=== PATIENT | male | born 1975 | race African-American/Black ===

== ENCOUNTER 2017-12-08 01:57 | Observation (INO) | payer OTHER ==
[~2017-12-08] VITALS: Ht 152.4 cm; Wt 100.0 kg
[2017-12-08] VITALS (7 sets, daily range): BP systolic 137–166; BP diastolic 67–81; PULSE 83–108; RESP 16–20; TEMP 98.3; O2SAT 95–100
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
[2017-12-08] MEDS ORDERED: ONDANSETRON HCL 4 MG/2 ML VIAL IV PUSH ONE (02:15)
[2017-12-08] MEDS ORDERED: MORPHINE SULFATE 8 MG/ML INJ IV PUSH ONE (02:15)
[2017-12-08] MEDS ORDERED: SODIUM CHLORIDE 0.9% FLUSH 10 ML FLUSH IVF PRN (02:15)
[2017-12-08 02:57] LABS: AUTOMATED NEUTROPHIL # 12.1 TH/MM3 (1.8-7.7); BASOPHIL # 0.1 TH/MM3 (0-0.2); BASOPHIL % 0.5 % (0.0-2.0); EOSINOPHIL # 0.1 TH/MM3 (0-0.4); EOSINOPHIL % 0.8 % (0.0-4.0); HEMATOCRIT 40.7 % (39.0-51.0); HEMOGLOBIN 13.4 GM/DL (13.0-17.0); LYMPH % 21.1 % (9.0-44.0); LYMPHOCYTE # 3.5 TH/MM3 (1.0-4.8); MEAN CORPUSCULAR HEMOGLOBIN 27.4 PG (27.0-34.0); MEAN PLATELET VOLUME 7.8 FL (7.0-11.0); MONO % 5.3 % (0.0-8.0); MONOCYTE # 0.9 TH/MM3 (0-0.9); NEUT % 72.3 % (16.0-70.0); PLATELET COUNT 246 TH/MM3 (150-450); RED CELL DISTRIBUTION WIDTH 13.8 % (11.6-17.2); WHITE BLOOD COUNT 16.7 TH/MM3 (4.0-11.0)
[2017-12-08 03:12] LABS: PROTHROMBIN TIME - PATIENT 10.2 SEC (9.8-11.6)
[2017-12-08 03:31] LABS: BICARBONATE 23.7 MEQ/L (21.0-32.0); BLOOD UREA NITROGEN 15 MG/DL (7-18); CALCIUM 8.6 MG/DL (8.5-10.1); CHLORIDE 107 MEQ/L (98-107); GLOMERULAR FILTRATION RATE 80 ML/MIN (>89); GLUCOSE,RANDOM 254 MG/DL (74-106); SODIUM (NA) 140 MEQ/L (136-145)
[2017-12-08] MEDS ORDERED: IOHEXOL 350 MG/ML 10 ML VIAL (for RAD DIAG) IVCONTRAST ONE (04:10)
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
[2017-12-08] MEDS ORDERED: DIPHTH/TETANUS/ACEL PERTUSSIS (BOOSTER) 0.5 ML VIAL/PFS IM ONE (05:45)
[2017-12-08] MEDS ORDERED: CHLORHEXIDINE GLUCONATE 2 % 1 PACK (2 CLOTHS) TOP PRN (05:45)
[2017-12-08] MEDS ORDERED: ACETAMINOPHEN/HYDROcodone 325 MG/5 MG TAB PO PRN ×2 (05:45)
[2017-12-08] MEDS ORDERED: MISCELLANEOUS NURSING INFORMATION XX SCH (05:45)
[2017-12-08] MEDS ORDERED: ACETAMINOPHEN/HYDROcodone 325 MG/5 MG TAB PO ONE (05:45)
[2017-12-08] MEDS ORDERED: MORPHINE SULFATE 8 MG/ML INJ IV PUSH PRN (05:45)
[2017-12-08] MEDS: KETOROLAC TROMETHAMINE 30 MG/ML (IVP) VIAL IVP SCH ×3 (06:04→17:02)
--- NOTE | 2017-12-08 06:13 | HHI.HP ---
History of Present Illness Primary Care Physician No Primary Care Physician Admission Diagnosis Possible Cardiac contusion, Rib fxs, PRISON Diagnoses: History of Present Illness 42 y.o male obese,DM,PRISON,C/o left back pain,thoracic pain anterior-neuro intact, GCS 15,moving all 4 extremities- Review of Systems Constitutional: DENIES: Diaphoretic episodes, Fatigue, Fever, Weight gain, Weight loss, Chills, Dizziness, Change in appetite, Night Sweats Endocrine: DENIES: Heat/cold intolerance, Polydipsia, Polyuria, Polyphagia Eyes: DENIES: Blurred vision, Diplopia, Eye inflammation, Eye pain, Vision loss , Photosensitivity, Double Vision Ears, nose, mouth, throat: DENIES: Tinnitus, Hearing loss, Vertigo, Nasal discharge, Oral lesions, Throat pain, Hoarseness, Ear Pain, Running Nose, Epistaxis, Sinus Pain, Toothache, Odynophagia Respiratory: DENIES: Apneas, Cough, Snoring, Wheezing, Hemoptysis, Sputum production, Shortness of breath Gastrointestinal: DENIES: Abdominal pain, Black stools, Bloody stools, Constipation, Diarrhea, Nausea, Vomiting, Difficulty Swallowing, Anorexia Genitourinary: DENIES: Sexual dysfunction, Urinary frequency, Urinary incontinence, Urgency, Hematuria, Dysuria, Nocturia, Penile Discharge, Testicular Pain, Testicular Swelling Musculoskeletal: DENIES: Joint pain, Muscle aches, Stiffness, Joint Swelling, Back pain, Neck pain Integumentary: DENIES: Abnormal pigmentation, Nail changes, Pruritus, Rash Hematologic/lymphatic: DENIES: Bruising, Lymphadenopathy Immunologic/allergic: DENIES: Eczema, Urticaria Neurologic: DENIES: Abnormal gait, Headache, Localized weakness, Paresthesias, Seizures, Speech Problems, Tremor, Poor Balance Past Family Social History Allergies: Coded Allergies: No Known Allergies (Unverified , 12/08/17) Past Medical History DM2 Past Surgical History none Active Ordered Medications none Family History none Social History no etoh Physical Exam Vital Signs Vital Signs Date Time Temp Pulse Resp B/P (MAP) Pulse Ox O2 Delivery O2 Flow Rate FiO2 12/08/17 04:38 108 16 137/73 (94) 97 Room Air 12/08/17 02:12 98 Room Air 12/08/17 02:11 97 16 166/81 (109) 97 Room Air 12/08/17 02:10 18 Physical Exam GENERAL: This is a well-nourished, well-developed patient, in no apparent distress. SKIN: No rashes, ecchymoses or lesions. Cool and dry. HEAD: No temporal or scalp tenderness. EYES: Pupils equal round and reactive. Extraocular motions intact. ENT: Nose without bleeding, purulent drainage or septal hematoma. Airway patent. NECK: Trachea midline.. CARDIOVASCULAR: Regular rate and rhythm without murmurs, gallops, or rubs. RESPIRATORY: Clear to auscultation. Breath sounds equal bilaterally. No wheezes , rales, or rhonchi. tender CW,tender upper back GASTROINTESTINAL: Abdomen soft, non-tender, nondistended. No hepato-splenomegaly , or palpable masses. No guarding. MUSCULOSKELETAL: Extremities without clubbing, cyanosis, or edema. No joint tenderness, effusion, or edema noted. No calf tenderness. Negative Homans sign bilaterally. NEUROLOGICAL: Awake and alert. Cranial nerves II through XII intact. Motor and sensory grossly within normal limits. Five out of 5 muscle strength in all muscle groups. Normal speech. Laboratory Laboratory Tests Test 12/08/17 02:45 White Blood Count 16.7 Red Blood Count 4.90 Hemoglobin 13.4 Hematocrit 40.7 Mean Corpuscular Volume 83.0 Mean Corpuscular Hemoglobin 27.4 Mean Corpuscular Hemoglobin Concent 33.0 Red Cell Distribution Width 13.8 Platelet Count 246 Mean Platelet Volume 7.8 Neutrophils (%) (Auto) 72.3 Lymphocytes (%) (Auto) 21.1 Monocytes (%) (Auto) 5.3 Eosinophils (%) (Auto) 0.8 Basophils (%) (Auto) 0.5 Neutrophils # (Auto) 12.1 Lymphocytes # (Auto) 3.5 Monocytes # (Auto) 0.9 Eosinophils # (Auto) 0.1 Basophils # (Auto) 0.1 CBC Comment DIFF FINAL Differential Comment Prothrombin Time 10.2 Prothromb Time International Ratio 1.0 Activated Partial Thromboplast Time 19.3 Blood Urea Nitrogen 15 Creatinine 1.20 Random Glucose 254 Calcium Level 8.6 Sodium Level 140 Potassium Level 3.6 Chloride Level 107 Carbon Dioxide Level 23.7 Anion Gap 9 Estimat Glomerular Filtration Rate 80 Ethyl Alcohol Level LESS THAN 3 Result Diagram: 12/08/17 0245 12/08/17 0245 Imaging Last 24 hours Impressions Thoracic Spine CT 3/17/18 0209 Signed Impressions: Service Date/Time: Friday, December 08, 2017 03:56 - CONCLUSION: 1. Subtle, nondisplaced fractures to the postero-medial aspect of ribs #5 and 6 on the left. 2. Bridging anterior and right lateral osteophytes at multiple dorsal levels are characteristic of DISH. No acute fracture of the dorsal spine. 3. Spinal canal appears to be adequate throughout. Darnell Salgado MD Maxillofacial CT 12/08/17208 Signed Impressions: Service Date/Time: Friday, December 08, 2017 03:56 - CONCLUSION: No fracture. Darnell Salgado MD Lumbar Spine CT 12/08/17208 Signed Impressions: Service Date/Time: Friday, December 08, 2017 03:56 - CONCLUSION: 1. Degenerative changes with left-sided facet hypertrophy at L3-4 and L4-5. Degenerative spurring of the SI joints bilaterally. 2. No fracture. Darnell Salgado MD Head CT 12/08/17208 Signed Impressions: Service Date/Time: Friday, December 08, 2017 03:56 - CONCLUSION: No acute intracranial trauma or fracture. Darnell Salgado MD Chest CT 12/08/17208 Signed Impressions: Service Date/Time: Friday, December 08, 2017 03:56 - CONCLUSION: 1. A few dots of air are seen anterior to the heart/mediastinum on the left of uncertain etiology. There is no pneumothorax. This may represent mild barotrauma. 2. Minimal dependent atelectatic changes. 3. No acute thoracic trauma. Darnell Salgado MD Cervical Spine CT 12/08/17208 Signed Impressions: Service Date/Time: Friday, December 08, 2017 03:56 - CONCLUSION: Mild, multilevel degenerative disc disease. No fracture. Darnell Salgado MD Abdomen/Pelvis CT 12/08/17208 Signed Impressions: Service Date/Time: Friday, December 08, 2017 03:56 - CONCLUSION: 1. Degenerative changes of the thoracolumbar spine and bony pelvis. 2. No acute abdominal or pelvic visceral trauma/fracture MD Pop Ruiz VTE Risk Assessment Caprini VTE Risk Assessment: Mod/High Risk (score >= 2) VTE Pharm Contraindication: Caprini Risk Assessment Model Point Value = 1 Point Value = 2 Point Value = 3 Point Value = 5 Age 41-60 Minor surgery BMI > 25 kg/m2 Swollen legs Varicose veins or History of unexplained or recurrent spontaneous Oral contraceptives or hormone replacement Sepsis (< 1 month) Serious lung disease, including pneumonia (< 1 month) Abnormal pulmonary function Acute myocardial infarction Congestive heart failure (< 1 month) History of inflammatory bowel disease Medical patient at bed rest Age 61-74 Arthroscopic surgery Major open surgery (> 45 min) Laparoscopic surgery (> 45 min) Malignancy Confined to bed (> 72 hours) Immobilizing plaster cast Central venous access Age >= 75 History of VTE Family history of VTE Factor V Leiden Prothrombin [id number] Lupus anticoagulant Anticardiolipin antibodies Elevated serum homocysteine Heparin-induced thrombocytopenia Other congenital or acquired thrombophilia Stroke (< 1 month) Elective arthroplasty Hip, pelvis, or leg fracture Acute spinal cord injury (< 1 month) Prophylaxis Regimen Total Risk Factor Score Risk Level Prophylaxis Regimen 0-1 Low Early ambulation 2 Moderate Order ONE of the following: *Sequential Compression Device (SCD) *Heparin 5000 units SQ BID 3-4 Higher Order ONE of the following medications: *Heparin 5000 units SQ TID *Enoxaparin/Lovenox 40 mg SQ daily (WT < 150 kg, CrCl > 30 mL/min) *Enoxaparin/Lovenox 30 mg SQ daily (WT < 150 kg, CrCl > 10-29 mL/min) *Enoxaparin/Lovenox 30 mg SQ BID (WT < 150 kg, CrCl > 30 mL/min) AND/OR *Sequential Compression Device (SCD) 5 or more Highest Order ONE of the following medications: *Heparin 5000 units SQ TID (Preferred with Epidurals) *Enoxaparin/Lovenox 40 mg SQ daily (WT < 150 kg, CrCl > 30 mL/min) *Enoxaparin/Lovenox 30 mg SQ daily (WT < 150 kg, CrCl > 10-29 mL/min) *Enoxaparin/Lovenox 30 mg SQ BID (WT < 150 kg, CrCl > 30 mL/min) AND *Sequential Compression Device (SCD) Assessment and Plan Assessment and Plan 2 rib fx left pneumomediastinum small admit to floor PT IS pain control f/u CXR Carie Frias MD Dec 08, 2017 06:13
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
[2017-12-08] MEDS ORDERED: GLUCAGON 1 MG/ML VIAL OTHER PRN (09:00)
[2017-12-08] MEDS ORDERED: DEXTROSE 50% IN WATER 50 ML VIAL(D50) IV PUSH PRN (09:00)
[2017-12-08] MEDS ORDERED: DOCUSATE SODIUM 50 MG/SENNA 8.6 MG TAB PO SCH (09:00)
[2017-12-08] MEDS ORDERED: MAGNESIUM HYDROXIDE SUSP 30 ML CUP PO SCH (09:00)
[2017-12-08] MEDS ORDERED: LIDOCAINE HCL 5% PATCH T-DERMAL SCH (09:00)
[2017-12-08] MEDS ORDERED: INSULIN ASPART SUPPLEMENTAL SCALE SQ SCH (12:00)
[2017-12-08] MEDS: METHOCARBAMOL 500 MG TAB PO SCH ×2 (12:01→17:02)
[2017-12-08] MEDS ORDERED: METF1000 PO (12:29)
[2017-12-08] MEDS ORDERED: GLIP5TAB8 PO (12:29)
[2017-12-08] MEDS ORDERED: AMLO10 PO (12:29)
[2017-12-08] MEDS ORDERED: MAGN30S PO (15:00)
[2017-12-08] MEDS ORDERED: PERI PO (15:00)
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
[2017-12-08] MEDS ORDERED: METH500T3 PO (16:13)
[2017-12-08] MEDS ORDERED: HYDR-3516 PO (16:13)
[2017-12-08] MEDS ORDERED: LIDO1ADH4 T-DERMAL (16:13)
--- NOTE | 2017-12-08 17:08 | EKG ---
Date Performed: 12/08/2017 Time Performed: 06:19:01 PTAGE: 42 years EKG: Short NM interval Nonspecific T-wave change ABNORMAL ECG NO PREVIOUS TRACING DOCTOR: Eze Perez Interpretating Date/Time 12/08/2017 17:06:43
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
[2017-12-08] MEDS ORDERED: REMOVE OLD LIDOCAINE PATCH T-DERMAL SCH (21:00)
[2017-12-09] MEDS ORDERED: CHLORHEXIDINE GLUCONATE 2 % 1 PACK (2 CLOTHS) TOP SCH (04:00)
== END 2017-12-08 17:42 | disposition home or self-care (01) ==
LOC: NEPE 01:57 → NEDA 05:56 → INTOOBSV 05:56 → UNDOADMOB 05:56 → NEDA 05:56 → NEDH 10:21 → NEDA 10:21 → NEDH 10:21 → NEDA 13:10 → NEDH 13:10 → NEDA 13:10 → UNDODISOB 17:42
PROVIDERS: ADMIT Surgery Trauma Surgery; ATTEND Surgery Trauma Surgery
DX: S22.42XA Multiple fractures of ribs, left side, initial encounter for closed fracture (principal); J98.2 Interstitial emphysema; E11.9 Type 2 diabetes mellitus without complications; R94.31 Abnormal electrocardiogram [ECG] [EKG]; M50.30 Other cervical disc degeneration, unspecified cervical region; E66.9 Obesity, unspecified; V29.9XXA Motorcycle rider (driver) (passenger) injured in unspecified traffic accident, initial encounter; Y92.481 Parking lot as the place of occurrence of the external cause
CPT/HCPCS: 70450; 70486; 71045; 71260; 72125; 72129; 72132; 73130; 74177; 80048; 80307; 84484; 85025; 85610; 85730; 86850; 86900; 86901; 90715; 93005; 96372; 96374; 96375; 97162; 99285; G0378; G8987; G8988; J1815; J1885; J2270; J2405; Q9967